=== PATIENT | male | born 1985 | race Caucasian/White ===

== ENCOUNTER 2017-09-08 22:27 | Emergency (ER) | payer SELFPAY ==
[~2017-09-08] VITALS: Ht 185.4 cm; Wt 74.8 kg
[~2017-09-08 22:27] MED LIST: DOXY-13 PO; MPR22T TP; SULF1TAB38 PO; SULF1TAB7 PO
[2017-09-08] MEDS ORDERED: LACTATED RINGERS 1,000 ML IV ONE (22:36)
[2017-09-08] MEDS ORDERED: KETOROLAC 30 MG/ML VIAL IVP ONE (22:45)
--- NOTE | 2017-09-08 22:45 | ED Abdominal Pain ---
General Chief Complaint: Abdominal/GI Problems Stated Complaint: ABD PAIN Source of Information: Patient Exam Limitations: No Limitations History of Present Illness Date Seen by Provider: Sep 08, 2017 Time Seen by Provider: 22:28 Initial Comments The patient presents to the ER by private conveyance with chief complaint that for about 3 or 4 days now has been having progressively worsening pain in his left side of his abdomen. He points to his left lower quadrant. He had a bowel movement that was normal formed yesterday. No diarrhea fevers chills. He did have some nausea but no vomiting yesterday. No nausea presently. He smokes about a pack per day drank some liquor and beer yesterday. He says he used marijuana about a month ago. Denies any other substance abuse. He has had no trauma, car wrecks etc. Describes the pain as intermittent, sharp and severe when it comes on. He's used Tylenol Motrin without much help. He has no history of abdominal surgeries or other medical history. Does not use any routine medicines. Does not follow with a doctor. Does not have any black tarry or bloody stools. Allergies and Home Medications Allergies Coded Allergies: No Known Drug Allergies (Unverified , 05/25/10) Home Medications Mupirocin 22 Gm Tube, 0 TP BID APPLY TO BILATERAL NOSTRILS TWICE DAILY FOR 5 DAYS, SQUEEZE NOSTRILS REPEATEDLY FOR 1 MINUTE TO DISTRIBUTE MEDICINE Prescribed by: JAMIE GONZALEZ on 10/05/132041 Trimethoprim/Sulfamethoxazole 1 Ea Tablet, 1 EA PO BID Prescribed by: JAMIE GONZALEZ on 10/05/132041 Patient Home Medication List Home Medication List Reviewed: Yes Review of Systems Constitutional: No chills, No diaphoresis, No fever, No malaise EENTM: No Blurred Vision, No Double Vision Respiratory: Denies Cough, Denies Shortness of Air Cardiovascular: Denies Chest Pain, Denies Edema Gastrointestinal: See HPI; Denies Abdomen Distended; Abdominal Pain; Denies Constipated, Denies Diarrhea; Nausea; Denies Poor Fluid Intake, Denies Vomiting Genitourinary: Denies Discharge, Denies Drainage, Denies Frequency, Denies Flank Pain Musculoskeletal: No back pain, No joint pain Skin: No pruritus, No rash Psychiatric/Neurological: Denies Headache, Denies Paresthesia Past Siupksz-[id number]-Wptjbo Hx Patient Social History Alcohol Use: Occasionally Uses Alcohol Beverage of Choice: Beer, Cheap Liquor Recreational Drug Use: Yes Drug of Choice: MJ Smoking Status: Current Everyday Smoker Type Used: Cigarettes (1 ppd) Recent Foreign Travel: No Contact w/Someone Who Travel: No Past Medical History Reproductive Disorders: No Sexually Transmitted Disease: No HIV/AIDS: No Fractures Physical Exam Vital Signs Vital Signs - First Documented 09/08/17 22:30 Temp 97.6 Pulse 86 Resp 18 B/P (MAP) 155/94 (114) Pulse Ox 99 O2 Delivery Room Air Capillary Refill : Height/Weight/BMI Height: 6'1" Weight: 165lbs. oz. 74.068037ga; BMI Method:Stated General Appearance: WD/WN, no apparent distress HEENT: PERRL/EOMI, normal ENT inspection, pharynx normal Neck: non-tender, normal inspection Respiratory: chest non-tender, lungs clear, normal breath sounds, no respiratory distress, no accessory muscle use Cardiovascular: normal peripheral pulses, regular rate, rhythm, no edema Gastrointestinal: normal bowel sounds, soft, no organomegaly, tenderness (left lower quadrant), other (negative for psoas sign or other mesenteric signs) Extremities: normal range of motion, normal capillary refill Back: normal inspection, no CVA tenderness Neurologic/Psychiatric: alert, normal mood/affect, oriented x 3 Skin: normal color, warm/dry Progress/Results/Core Measures Results/Orders Lab Results Laboratory Tests Test 09/08/17 22:35 Range/Units White Blood Count 7.5 4.3-11.0 10^3/uL Red Blood Count 4.66 4.35-5.85 10^6/uL Hemoglobin 14.7 13.3-17.7 G/DL Hematocrit 40 40-54 % Mean Corpuscular Volume 86 80-99 FL Mean Corpuscular Hemoglobin 32 25-34 PG Mean Corpuscular Hemoglobin Concent 37 H 32-36 G/DL Red Cell Distribution Width 12.2 10.0-14.5 % Platelet Count 176 130-400 10^3/uL Mean Platelet Volume 10.0 7.4-10.4 FL Neutrophils (%) (Auto) 70 42-75 % Lymphocytes (%) (Auto) 20 12-44 % Monocytes (%) (Auto) 9 0-12 % Eosinophils (%) (Auto) 2 0-10 % Basophils (%) (Auto) 0 0-10 % Neutrophils # (Auto) 5.3 1.8-7.8 X 10^3 Lymphocytes # (Auto) 1.5 1.0-4.0 X 10^3 Monocytes # (Auto) 0.7 0.0-1.0 X 10^3 Eosinophils # (Auto) 0.1 0.0-0.3 10^3/uL Basophils # (Auto) 0.0 0.0-0.1 10^3/uL Sodium Level 141 135-145 MMOL/L Potassium Level 3.5 L 3.6-5.0 MMOL/L Chloride Level 108 H 98-107 MMOL/L Carbon Dioxide Level 25 21-32 MMOL/L Anion Gap 8 5-14 MMOL/L Blood Urea Nitrogen 14 7-18 MG/DL Creatinine 0.82 0.60-1.30 MG/DL Estimat Glomerular Filtration Rate > 60 BUN/Creatinine Ratio 17 Glucose Level 96 70-105 MG/DL Calcium Level 9.1 8.5-10.1 MG/DL Magnesium Level 2.5 H 1.8-2.4 MG/DL Total Bilirubin 1.0 0.1-1.0 MG/DL Aspartate Amino Transf (AST/SGOT) 19 5-34 U/L Alanine Aminotransferase (ALT/SGPT) 24 0-55 U/L Alkaline Phosphatase 70 40-136 U/L Total Protein 7.4 6.4-8.2 GM/DL Albumin 4.5 3.2-4.5 GM/DL Serum Alcohol < 10 <10 MG/DL My Orders Orders - NEVILLE TOM Alcohol (09/08/17 22:36) Cbc With Automated Diff (09/08/17 22:36) Comprehensive Metabolic Panel (09/08/17 22:36) Drug Screen Stat (Urine) (09/08/17 22:36) Magnesium (09/08/17 22:36) Ua Culture If Indicated (09/08/17 22:36) Saline Lock/Iv-Start (09/08/17 22:36) Lactated Ringers (Lr 1000 Ml Iv Solution (09/08/17 22:36) Ketorolac Injection (Toradol Injection) (09/08/17 22:45) Medications Given in ED Current Medications Medications Dose Ordered Sig/Rebecca Route Start Time Stop Time Status Last Admin Dose Admin Ketorolac Tromethamine 15 mg ONCE ONCE IVP 09/08/17 22:45 09/08/17 22:46 DC 09/08/17 22:45 15 MG Lactated Ringer's 1,000 ml @ 0 mls/hr Q0M ONCE IV 09/08/17 22:36 09/08/17 22:38 DC 09/08/17 22:45 0 MLS/HR Vital Signs/I&O 09/08/17 22:30 Temp 97.6 Pulse 86 Resp 18 B/P (MAP) 155/94 (114) Pulse Ox 99 O2 Delivery Room Air Progress Progress Note : Time: 22:41 Progress Note Differential includes dehydration with abdominal cramps versus less likely IBS, IBD, diverticulitis however I would expect to see some diarrhea with any of those diagnoses. We'll start with just some Toradol basic labs and a liter of LR if it is dehydration and reevaluate him an hour after we have her labs back. He does not seem to be constipated since he is claiming to have had a bowel movement within the last 24 hours that was normal. No mesenteric signs and the patient does not have a acutely surgical abdomen but his pain is definitely reproducible in the left lower quadrant. Departure Impression Primary Impression: Dehydration Additional Impression: Abdominal cramping in left lower quadrant Disposition: 01 HOME, SELF-CARE Condition: Stable Departure-Patient Inst. Decision time for Depature: 23:15 Referrals: [facility] [place] (PCP/Family) Primary Care Physician Patient Instructions: Acute Abdomen (Belly Pain), Adult (DC) Add. Discharge Instructions: If you start having chest pain, shortness of breath, intractable nausea and vomiting you should return to the ER for evaluation otherwise of your symptoms do not improve in the next week or so you can follow-up with your primary care provider. You can use Tylenol 1000 mg every 8 hours and/or ibuprofen 800 mg every 8 hours as needed for pain. For the next several days you should drink lots of fluids to include sports drinks. Avoid alcohol and caffeine for the next couple days. All discharge instructions reviewed with patient and/or family. Voiced understanding. Copy Copies To 1: GERDA WILLIS TITUS J Sep 08, 2017 22:45
[2017-09-08 22:46] LABS: BASOPHILS % (AUTO) 0 % (0-10); EOSINOPHILS # (AUTO) 0.1 10^3/uL (0.0-0.3); EOSINOPHILS % (AUTO) 2 % (0-10); HEMATOCRIT 40 % (40-54); HEMOGLOBIN 14.7 G/DL (13.3-17.7); LYMPHOCYTES # (AUTO) 1.5 X 10^3 (1.0-4.0); LYMPHOCYTES % (AUTO) 20 % (12-44); MEAN CORPUSCULAR HEMOGLOBIN 32 PG (25-34); MEAN CORPUSCULAR HGB CONC 37 G/DL (32-36); MEAN CORPUSCULAR VOLUME 86 FL (80-99); MONOCYTES # (AUTO) 0.7 X 10^3 (0.0-1.0); MONOCYTES % (AUTO) 9 % (0-12); NEUTROPHILS # (AUTO) 5.3 X 10^3 (1.8-7.8); NEUTROPHILS % (AUTO) 70 % (42-75); PLATELET COUNT 176 10^3/uL (130-400); RED BLOOD COUNT 4.66 10^6/uL (4.35-5.85); RED CELL DISTRIBUTION WIDTH 12.2 % (10.0-14.5); WHITE BLOOD COUNT 7.5 10^3/uL (4.3-11.0)
[2017-09-08 23:05] LABS: ALANINE AMINOTRANSFERASE 24 U/L (0-55); ALBUMIN 4.5 GM/DL (3.2-4.5); ALKALINE PHOSPHATASE 70 U/L (40-136); BUN/CREATININE RATIO 17; CALCIUM 9.1 MG/DL (8.5-10.1); CARBON DIOXIDE 25 MMOL/L (21-32); CHLORIDE 108 MMOL/L (98-107); CREATININE SERUM 0.82 MG/DL (0.60-1.30); GFR ESTIMATED > 60; GLUCOSE 96 MG/DL (70-105); MAGNESIUM 2.5 MG/DL (1.8-2.4); POTASSIUM 3.5 MMOL/L (3.6-5.0); SODIUM 141 MMOL/L (135-145); TOTAL PROTEIN 7.4 GM/DL (6.4-8.2)
[2017-09-08 23:18] VITALS: BP 155/94
== END 2017-09-08 23:23 | disposition home or self-care (01) ==
LOC: EDUNIT# 22:27 → ER 22:29
DX: E86.0 Dehydration (principal); R10.32 Left lower quadrant pain; F17.210 Nicotine dependence, cigarettes, uncomplicated
CPT/HCPCS: 36415; 80053; 80320; 83735; 85025; 96374